=== PATIENT | female | born 1985 | race Asian ===

== ENCOUNTER 2017-01-14 21:25 | Emergency (ER) | payer SELFPAY ==
[~2017-01-14] VITALS: Ht 162.6 cm; Wt 54.5 kg
[2017-01-14 21:31] VITALS: Ht 162.6 cm; Wt 54.5 kg
[2017-01-14 23:01] LABS: URINE BLOOD (Dip) POC 2+ (NEGATIVE)
--- NOTE | 2017-01-14 23:39 | ERD ---
ER Documentation Chief Complaint Date/Time DATE: 01/14/17 TIME: 23:34 Chief Complaint couldn't get tampon out per patient verbatim HPI This 31-year-old female presents to emergency department for possible retained tampon. Patient is currently menstruating, reports spotting. States she remembers putting a tampon in her vagina ; has not been able to locate strain. Patient reports that she does have blood on her panties, currently spotting. Reports this is day 5 of menstruation. Denies feeling any foreign body, denies any odor, fever, or chills. Patient denies dysuria, nausea or vomiting. ROS All systems reviewed and are negative except as per history of present illness. Allergies Allergies: Coded Allergies: No Known Allergy (Unverified , 01/14/17) PMhx/Soc History of Surgery: No Anesthesia Reaction: No Hx Neurological Disorder: No Hx Respiratory Disorders: No Hx Cardiac Disorders: No Hx Psychiatric Problems: No Hx Miscellaneous Medical Probl: No Hx Alcohol Use: No Hx Substance Use: No Hx Tobacco Use: No Physical Exam Vitals Vital Signs Date Time Temp Pulse Resp B/P Pulse Ox O2 Delivery O2 Flow Rate FiO2 01/14/17 21:31 98.8 69 18 140/79 99 Vitals stable, triage notes reviewed Physical Exam Const: No acute distress Head: Atraumatic Eyes: Normal Conjunctiva ENT: Normal External Ears, Nose and Mouth. Neck: Resp: Respirations even and unlabored, no respiratory distress Cardio: Pelvic Exam: Brine Tank Tender present Abdomen: Soft, nontender nondistended External Genitalia: Normal genitalia Speculum: Normal vaginal mucosa, normal bloody cervical discharge , no evidence of retained tampon Bimanual: No adnexal masses or tenderness, No CMT Javi Ext: Neur: Awake and alert Psych: Normal Mood and Affect Results 24 hrs Laboratory Tests Test 01/14/17 23:05 Bedside Urine pH (LAB) 6.5 Bedside Urine Protein (LAB) Negative Bedside Urine Glucose (UA) Negative Bedside Urine Ketones (LAB) Negative Bedside Urine Blood 2+ Bedside Urine Nitrite (LAB) Negative Bedside Urine Leukocyte Esterase (L Negative Interpretation text Urinalysis positive for hematuria consistent with menstruation. Negative for leukocytosis or nitrates. Procedures/MDM This pleasant 31-year-old female presents to emergency department for possible retained tampon. Patient reports that she is currently menstruating when to take out her tampon and she could not find it. Patient does not remember taking 1 out. Reports that she is currently bleeding, reports scant discharge using panty liner only. Day 5 of 5 menstruation. Patient denies being able to feel any foreign body, has no back pain, denies any abnormal odor. Toxic shock , bacterial vaginosis, sexually transmitted infection not suspected. Physical exam produces no retained tampon. Cervix is easily visualized, no cervical motion tenderness. No foreign body visualized in vagina. 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 I have discussed results, examination findings, the treatment plan with the patient and family present prior to discharge. Indications for emergent reevaluation, side effects of medication were also discussed. All questions were answered. Patient verbalizes understanding and agrees with plan of care. Departure Diagnosis: Primary Impression: Normal pelvic exam Condition: Good Patient Instructions: For Girls: About Sanitary Pads and Tampons Additional Instructions: Thank you for for coming to [facility] for your care today. Please ask your nurse or provider if you have questions about your care today and do not leave until all your questions have been answered. Please use any medications given as directed and follow-up with your doctor (or the doctor you were referred to) in the next 2-3 days. If you do not have a primary care doctor you may follow up at the [facility] (listed below). You may also use motrin and tylenol as needed for fever and/or pain unless instructed otherwise by your provider or nurse. Indications for more urgent follow-up have been discussed, but you may return to the Emergency Department at ANY time for any worrisome or worsening symptoms. If you have abdominal pain, please know that no test or exam you received is perfect and you should follow up within 8 hours for continued pain. If you had any imaging studies today, such as an X-Ray or CT Scan, these studies will be reviewed later by a radiologist. You will be called if there are important findings that were not identified today, so make sure the contact information you provided at registration is correct. If you received any narcotic pain control medicine today, such as Vicodin, Morphine or Dilaudid, your coordination and judgment may be affected for a number of hours. Please do not drive or operate heavy machinery, and you may want someone to assist you at home. If you were given a prescription for narcotic medication, be aware that it is very addictive- use sparingly and only if necessary. LASHAWN CHEN Jan 14, 2017 23:39
== END 2017-01-14 23:54 | disposition home or self-care (01) ==
LOC: FTE 21:25
DX: Z00.00 Encounter for general adult medical examination without abnormal findings (principal)
CPT/HCPCS: 81003; 99284